=== PATIENT | male | born 1970 | race Caucasian/White ===

== ENCOUNTER → 2023-12-30 | Outpatient (CLI) | payer BC | END | disposition home or self-care (01) | LOC: MRI 13:37 | PROVIDERS: ATTEND Family Medicine Sports Medicine | DX: S83.242A Other tear of medial meniscus, current injury, left knee, initial encounter (principal); M94.8X8 Other specified disorders of cartilage, other site; M17.12 Unilateral primary osteoarthritis, left knee; M25.562 Pain in left knee; X58.XXXA Exposure to other specified factors, initial encounter; Y93.89 Activity, other specified; Y92.89 Other specified places as the place of occurrence of the external cause; Y99.8 Other external cause status | CPT/HCPCS: 73721 ==